=== PATIENT | female | born 1975 | race Caucasian/White ===

== ENCOUNTER → 2018-04-22 | Emergency (ER) | payer SELFPAY ==
[~2018-04-22] MED LIST: ALBUTEROL 2.5 MG/3 ML NEB SOL ONE; BENZONATATE 100 MG CAP PO ONE; IPRATROPIUM BROM 0.5MG/2.5ML ONE; predniSONE 10 MG TAB ONE; predniSONE 20 MG TAB ONE
--- NOTE | 2018-04-22 10:45 | RAD REPORT ---
EXAM DESCRIPTION: Saji Joshua (2 Views)04/22/2018 10:28 am CLINICAL HISTORY: Cough COMPARISON: None FINDINGS: The lungs appear clear of acute infiltrate. The heart is normal size IMPRESSION: No acute abnormalities displayed
== END ==
LOC: ER 07:05
DX: R05 Cough (principal); Z72.0 Tobacco use
CPT/HCPCS: 71046; 87070; 87081; 87804; J7512

== ENCOUNTER 2018-08-11 19:39 | Emergency (ER) | payer SELFPAY ==
[2018-08-11 21:33] LABS: Absolute Lymphocytes (CBC) 2.5 K/uL (0.7-4.9); Absolute Monocytes 0.7 K/uL (0.1-1.3); Absolute Neutrophil 6.6 K/uL (1.8-8.0); Basophils % 0.7 % (0-1.3); Eosinophils % 2.9 % (0-4.4); Hematocrit 39.5 % (36.0-45.0); Lymphocytes % 24.9 % (15.3-44.8); MPV 8.9 fL (7.6-11.3); RBC Red Blood Cell Count 4.72 M/uL (3.86-4.86)
[2018-08-11 21:37] LABS: Protime INR 1.03
[2018-08-11 21:52] LABS: ALT/SGPT 47 U/L (12-78); AST/SGOT 16 U/L (15-37); Albumin 3.8 g/dL (3.4-5.0); Alkaline Phosphatase 69 U/L (45-117); BUN Blood Urea Nitrogen 12 mg/dL (7-18); Bicarbonate 25 mmol/L (21-32); Bilirubin Direct < 0.1 mg/dL (0-0.2); Bilirubin Total 0.3 mg/dL (0.2-1.0); Glucose Level 109 mg/dL (74-106); Lipase 70 U/L (73-393); Magnesium 2.2 mg/dL (1.8-2.4); NT PRO-BNP 40 pg/mL (<125); Potassium 3.7 mmol/L (3.5-5.1); Protein, Total 7.2 g/dL (6.4-8.2); Sodium Level 139 mmol/L (136-145); Troponin (Emerg Dept Use Only) < 0.02 ng/mL (0.0-0.045)
--- NOTE | 2018-08-12 00:14 | EDPHYS ---
Physician Documentation [facility] Name: Elana Bowers Age: 43 yrs Sex: Female : 1975 Arrival Date: 08/11/2018 Time: 19:42 Bed 23 Private MD: ED Physician Rob Zelaya HPI: 08/11 20:19 This 43 yrs old Female presents to ER via Ambulatory with complaints of Pain jmm under rib on left side. 20:19 The patient has shortness of breath at rest. Onset: The symptoms/episode began/occurred jmm gradually, 3 day(s) ago. Duration: The symptoms are continuous, and are steadily getting worse. The patient's shortness of breath is aggravated by nothing, is alleviated by nothing. The patient or guardian reports chest pain that is located primarily in the diaphragm. Onset: gradually, 1 year(s) ago. This is a 43 year old female with no chronic medical conditions that presents to the ED with lower rib pain beginning approx 1 year ago worsening over the past 3 days with shortness of breath. Patient denies abdominal pain. Patient denies fever. Patient states she was previously evaluated for COPD 2 years ago but has not had a flare up since. . 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 - Social history:: Smoking status: Patient/guardian denies using tobacco. - Ebola Screening: : Patient negative for fever greater than or equal to 101.5 degrees Fahrenheit, and additional compatible Ebola Virus Disease symptoms Patient denies exposure to infectious person Patient denies travel to an Ebola-affected area in the 21 days before illness onset No symptoms or risks identified at this time. ROS: 20:19 Constitutional: Negative for fever, chills, and weight loss. jmm 20:19 Abdomen/GI: Negative for abdominal pain, nausea, vomiting, diarrhea, and constipation, MS/Extremity: Negative for injury and deformity, Skin: Negative for injury, rash, and discoloration, Neuro: Negative for headache, weakness, numbness, tingling, and seizure. 20:19 Cardiovascular: Positive for chest pain. 20:19 Respiratory: Positive for shortness of breath. 20:19 All other systems are negative. Exam: 20:19 Head/Face: atraumatic. Eyes: EOMI, no conjunctival erythema appreciated ENT: Moist jmm Mucus Membranes Neck: Trachea midline, Supple Chest/axilla: Normal chest wall appearance and motion. Cardiovascular: Regular rate and rhythm. No edema appreciated 20:19 Constitutional: The patient appears in no acute distress, alert, awake. 20:19 Chest/axilla: Inspection: normal, Palpation: tenderness, that is moderate, of the diaphragm. 20:19 Respiratory: the patient does not display signs of respiratory distress, Respirations: normal, Breath sounds: are clear throughout. 20:19 Abdomen/GI: Inspection: obese Bowel sounds: normal, Palpation: abdomen is soft and non-tender, in all quadrants. 20:19 Back: ROM is normal. 20:19 Musculoskeletal/extremity: ROM: intact in all extremities. 20:19 Skin: Appearance: Color: normal in color. 20:19 Neuro: Orientation: is normal, Mentation: is normal, Memory: is normal. 20:19 Psych: Behavior/mood is pleasant, cooperative. Vital Signs: 19:49 BP 134 / 91; Pulse 88; Resp 19; Temp 97.6; Pulse Ox 98% on R/A; Weight 90.72 kg; Height aj 5 ft. 5 in. (165.10 cm); 21:49 BP 136 / 87; Pulse 76; Resp 16; Pulse Ox 99% on R/A; Pain 4/10; ed1 22:59 BP 115 / 82; Pulse 78; Resp 16; Pulse Ox 98% on R/A; jb4 08/12 00:00 BP 119 / 89; Pulse 75; Resp 16; Pulse Ox 99% on R/A; jb4 08/11 19:49 Body Mass Index 33.28 (90.72 kg, 165.10 cm) aj MDM: 08/11 20:19 Patient medically screened. [facility] 23:56 Data reviewed: vital signs, nurses notes, lab test result(s), radiologic studies, CT [facility] scan. Counseling: I had a detailed discussion with the patient and/or guardian regarding: the historical points, exam findings, and any diagnostic results supporting the discharge/admit diagnosis, lab results, radiology results, the need for outpatient follow up, to return to the emergency department if symptoms worsen or persist or if there are any questions or concerns that arise at home. ED course: I do not suspect ACS. Heart Score = 1. . 08/12 00:10 ED course: I do not suspect ACS. Normal EKG, troponin normal. CTA normal. patient is [facility] advised to follow up with GI for further evaluation. Patient is otherwise given strict return precautions. Patient understood and agrees with the plan of care. . 08/11 20:29 Order name: Basic Metabolic Panel; Complete Time: 21:54 [facility] 08/11 20:29 Order name: CBC with Diff; Complete Time: 21:42 [facility] 08/11 20:29 Order name: LFT's; Complete Time: :54 [facility] 08/11 20:29 Order name: Magnesium; Complete Time: 21:54 [facility] 08/11 20:29 Order name: NT PRO-BNP; Complete Time: 21:54 [facility] 08/11 20:29 Order name: PT-INR; Complete Time: 21:42 [facility] 08/11 20:29 Order name: Troponin (emerg Dept Use Only); Complete Time: 21:54 [facility] 08/11 20:29 Order name: EKG; Complete Time: 20:30 [facility] 08/11 20:29 Order name: Cardiac monitoring; Complete Time: 21:51 [facility] 08/11 20:29 Order name: EKG - Nurse/Tech; Complete Time: 21:51 [facility] 08/11 20:29 Order name: IV Saline Lock; Complete Time: 21:51 [facility] 08/11 20:29 Order name: Lipase; Complete Time: 21:54 [facility] 08/11 20:30 Order name: CT Chest For PE Angio [facility] 08/11 20:29 Order name: Labs collected and sent; Complete Time: 21:51 [facility] 08/11 20:29 Order name: O2 Per Protocol; Complete Time: 21:51 [facility] 08/11 20:29 Order name: O2 Sat Monitoring; Complete Time: 21:51 [facility] Administered Medications: 00:10 Drug: Ketorolac 30 mg Route: IVP; Site: right antecubital; jb4 00:24 Follow up: Response: No adverse reaction; Pain is decreased jb4 Disposition: 07:34 Co-signature as Attending Physician, Rob Zelaya MD I agree with the assessment and satinder plan of care. Disposition: 08/12/18 00:13 Discharged to Home. Impression: Intercostal pain. - Condition is Stable. - Discharge Instructions: Chest Wall Pain, Esophagitis. - Prescriptions for Pepcid 20 mg Oral Tablet - take 1 tablet by ORAL route every 12 hours for 10 days; 20 tablet. - Medication Reconciliation Form, Thank You Letter, Antibiotic Education, Prescription Opioid Use form. - Follow up: Elmo Soliman MD; When: 2 - 3 days; Reason: Recheck today's complaints, Continuance of care, Re-evaluation by your physician. Follow up: Brandon Munguia MD; When: 2 - 3 days; Reason: Recheck today's complaints, Continuance of care, Re-evaluation by your physician. Signatures: Dispatcher [employer] EDKanika Arevalo, RN RN Rob Johnson MD MD cha Mickail, Joel, PA PA jmm Bryson, James RN RN jb4 Corrections: (The following items were deleted from the chart) 00:25 00:13 08/12/2018 00:13 Discharged to Home. Impression: Intercostal pain. Condition is jb4 Stable. Forms are Medication Reconciliation Form, Thank You Letter, Antibiotic Education, Prescription Opioid Use. Follow up: Elmo Soliman; When: 2 - 3 days; Reason: Recheck today's complaints, Continuance of care, Re-evaluation by your physician. Follow up: Brandon Munguia; When: 2 - 3 days; Reason: Recheck today's complaints, Continuance of care, Re-evaluation by your physician. angelica
--- NOTE | 2018-08-12 00:14 | ER ---
Nurse's Notes [facility] Name: Elana Bowers Age: 43 yrs Sex: Female : 1975 Arrival Date: 08/11/2018 Time: 19:42 Bed 23 Private MD: Diagnosis: Intercostal pain Presentation: 08/11 19:48 Presenting complaint: Patient states: Pain to right lower ribs for 1 year that has aj increased in severity in the past 3 days. Transition of care: patient was not received from another setting of care. Onset of symptoms was August 09, 2018. Risk Assessment: Do you want to hurt yourself or someone else? Patient reports no desire to harm self or others. Initial Sepsis Screen: Does the patient meet any 2 criteria? No. Patient's initial sepsis screen is negative. Does the patient have a suspected source of infection? No. Patient's initial sepsis screen is negative. Care prior to arrival: None. 19:48 Method Of Arrival: Ambulatory aj 19:48 Acuity: TAMIKO 3 aj Triage Assessment: 19:49 General: Appears in no apparent distress. comfortable, Behavior is calm, cooperative, aj appropriate for age. Pain: Complains of pain in diaphragm, right breast, right eighth rib, right ninth rib, right tenth rib, right seventh intercostal space and right eighth intercostal space. Neuro: Level of Consciousness is awake, alert, obeys commands, Oriented to person, place, time, situation, Appropriate for age. Respiratory: Airway is patent Respiratory effort is even, unlabored, Respiratory pattern is regular, symmetrical. Derm: Skin is intact, is healthy with good turgor, Skin is pink, warm \T\ dry. normal. 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 - Social history:: Smoking status: Patient/guardian denies using tobacco. - Ebola Screening: : Patient negative for fever greater than or equal to 101.5 degrees Fahrenheit, and additional compatible Ebola Virus Disease symptoms Patient denies exposure to infectious person Patient denies travel to an Ebola-affected area in the days before illness onset No symptoms or risks identified at this time. Screenin:49 Abuse screen: Denies threats or abuse. Denies injuries from another. Nutritional ed1 screening: No deficits noted. Tuberculosis screening: No symptoms or risk factors identified. Fall Risk None identified. Assessment: 21:49 Reassessment: Patient appears in no apparent distress at this time. No changes from ed1 previously documented assessment. Patient and/or family updated on plan of care and expected duration. Pain level reassessed. Patient is alert, oriented x 3, equal unlabored respirations, skin warm/dry/pink. Patient states symptoms have not improved. 22:59 Reassessment: Patient appears in no apparent distress at this time. Patient and/or jb4 family updated on plan of care and expected duration. Pain level reassessed. Patient is alert, oriented x 3, equal unlabored respirations, skin warm/dry/pink. 08/12 00:12 Reassessment: Patient appears in no apparent distress at this time. Patient and/or jb4 family updated on plan of care and expected duration. Pain level reassessed. Patient is alert, oriented x 3, equal unlabored respirations, skin warm/dry/pink. Vital Signs: 08/11 19:49 BP 134 / 91; Pulse 88; Resp 19; Temp 97.6; Pulse Ox 98% on R/A; Weight 90.72 kg; Height aj 5 ft. 5 in. (165.10 cm); 21:49 BP 136 / 87; Pulse 76; Resp 16; Pulse Ox 99% on R/A; Pain 4/10; ed1 22:59 BP 115 / 82; Pulse 78; Resp 16; Pulse Ox 98% on R/A; jb4 08/12 00:00 BP 119 / 89; Pulse 75; Resp 16; Pulse Ox 99% on R/A; jb4 08/11 19:49 Body Mass Index 33.28 (90.72 kg, 165.10 cm) ED Course: 08/11 19:42 Patient arrived in ED. es 19:49 Triage completed. aj 19:49 Arm band placed on left wrist. Patient placed in an exam room. aj 19:51 Griselda Ann LVN is Primary Nurse. ed1 20:06 Obi Nunez PA is PHCP. jm 20:06 Rob Zelaya MD is Attending Physician. [facility] 20:37 Radiology exam delayed due to lab results not completed at this time. (BUN/Creatinine) nj IV insertion attempt and/or patient not having appropriate IV at this time. 21:17 Radiology exam delayed due to lab results not completed at this time. (BUN/Creatinine). nj 21:24 Radiology exam delayed due to lab results not completed at this time. (BUN/Creatinine). 2 21:49 Patient has correct armband on for positive identification. Bed in low position. Call ed1 light in reach. transmitter operator on. Pulse ox on. NIBP on. 21:49 Initial lab(s) drawn, by nv, sent to lab. Inserted saline lock: 22 gauge in right ed1 antecubital area, using aseptic technique. Blood collected. 22:[address] 2 22:26 [address] completed. Patient tolerated procedure well. Patient moved back from CT. 2 22:29 CT Chest For PE Angio In Process Unspecified. EDMS 22:39 Primary Nurse role handed off by Griselda Ann LVN ed1 22:59 Brice Atwood, RN is Primary Nurse. [facility] 04 00:12 Elmo Soliman MD is Referral Physician. [facility] 00:12 Brandon Munguia MD is Referral Physician. [facility] 00:24 No provider procedures requiring assistance completed. IV discontinued, intact, jb4 bleeding controlled. Administered Medications: 00:10 Drug: Ketorolac 30 mg Route: IVP; Site: right antecubital; 4 00:24 Follow up: Response: No adverse reaction; Pain is decreased [facility] Outcome: 00:13 Discharge ordered by . [facility] 00:24 Discharged to home ambulatory. jb4 00:24 Condition: stable 00:24 Discharge instructions given to patient, significant other, Instructed on discharge instructions, follow up and referral plans. medication usage, Demonstrated understanding of instructions, follow-up care, medications, Prescriptions given X 1. 00:25 Patient left the ED. jb Signatures: Dispatcher [employer] Kanika Kim, RN Obi Alfred PA PA Marissa Duran Erika, LVN DIRECTOR SALES [employer] TRADE MARKETING ed1 Brice Atwood, [place] QUINN [facility] Bertin Mcbride Victoria vm2
[2018-08-12] MEDS ORDERED: KETOROLAC 30 MG/ML INJ ONE (00:16)
--- NOTE | 2018-08-12 07:46 | EKG ---
Test Date: 2018-08-11 Test Time: 20:43:49 Commercial Escrow Officer: [id number] MEASUREMENT RESULTS: Intervals: Rate: 67 DC: 182 QRSD: 86 QT: 390 QTc: 412 Poca: P: 70 DC: 182 QRS: 63 T: 76 INTERPRETIVE STATEMENTS: Normal sinus rhythm Cannot rule out Anterior infarct, age undetermined Abnormal ECG No previous ECG available for comparison Electronically Signed On 08-12-18 07:45:47 GENERAL CLAIMS AGENT by Otis Pena
--- NOTE | 2018-08-12 07:59 | RAD REPORT ---
EXAM DESCRIPTION: CT - Chest For Pe Angio - 08/12/2018 6:29 am CLINICAL HISTORY: Chest pain COMPARISON: None. TECHNIQUE: Dynamically enhanced axial 3 mm thick images of the chest were obtained during administra tion of <100> mL Isovue 370 IV contrast. Coronal and oblique reconstruction images were generated and reviewed. Exam utilizes a protocol for optimal evaluation of pulmonary arterial tree. Preliminary re port generated by virtual radiologic and review prior to dictation Maximum intensity projections 3D imaging was utilized All CT scans are performed using dose optimization technique as appropriate and may include automated exposure control or mA/KV adjustment according to patient size. FINDINGS: A pulmonary embolus is not seen. A thoracic aortic aneurysm is not noted. A pleural effusion is not seen. A pericardial effusion is not seen. A lung consolidation is not present. The wall of the distal esophagus appears thickened. Small hiatal hernia IMPRESSION: Negative for a pulmonary embolism. Apparent thickening of the wall of the distal esophagus may indicate inflammation, mass or incomplete distention
== END 2018-08-12 00:25 | disposition home or self-care (01) ==
LOC: ER 19:39
DX: R07.82 Intercostal pain (principal)
CPT/HCPCS: 36415; 71275; 80048; 80076; 83690; 83735; 83880; 84484; 85025; 85610; 93005; 96374; 99285; Q9967

== ENCOUNTER 2019-02-04 12:39 | Emergency (ER) | payer SELFPAY ==
[2019-02-04 13:24] LABS: Absolute Lymphocytes (CBC) 1.5 K/uL (0.7-4.9); Basophils % 0.7 % (0-1.3); Hematocrit 40.5 % (36.0-45.0); Lymphocytes % 19.2 % (15.3-44.8); MPV 8.8 fL (7.6-11.3); Monocytes % 5.3 % (3.3-12.3)
[2019-02-04 13:28] LABS: Urine Blood 2+ (NEG); Urine Glucose NEGATIVE (NEG); Urine Protein NEGATIVE (NEG); Urine Specific Gravity 1.025 (1.005-1.030); Urine pH 5.5 (5.0-7.0)
[2019-02-04] MEDS ORDERED: MAGNE/ALUM HYDROXD 30 ML UCUP ONE (13:34)
[2019-02-04] MEDS ORDERED: MORPHINE 4 MG/ML SYR ONE (13:35)
[2019-02-04] MEDS ORDERED: LIDOCAINE VISCOUS 2% SOLN 15 ML UDC ONE (13:35)
[2019-02-04] MEDS ORDERED: ONDANSETRON 4 MG/2 ML VIAL ONE (13:35)
[2019-02-04 13:41] LABS: ALT/SGPT 78 U/L (12-78); AST/SGOT 32 U/L (15-37); Albumin 3.9 g/dL (3.4-5.0); Alkaline Phosphatase 84 U/L (45-117); BUN Blood Urea Nitrogen 9 mg/dL (7-18); Bicarbonate 27 mmol/L (21-32); Bilirubin Direct < 0.1 mg/dL (0-0.2); Bilirubin Total 0.4 mg/dL (0.2-1.0); Glucose Level 133 mg/dL (74-106); Lipase 48 U/L (73-393); Potassium 3.8 mmol/L (3.5-5.1); Protein, Total 7.3 g/dL (6.4-8.2); Sodium Level 142 mmol/L (136-145)
--- NOTE | 2019-02-04 14:21 | RAD REPORT ---
EXAM DESCRIPTION: CT - Abdomen Pelvis W Contrast - 02/04/2019 2:04 pm CLINICAL HISTORY: Abdominal pain with nausea. COMPARISON: none. TECHNIQUE: Computed axial tomography of the abdomen pelvis was obtained. 100 cc Isovue-300 was admin istered intravenously. Oral contrast was not requested which limits evaluation of bowel. All CT scans are performed using dose optimization technique as appropriate and may include automated exposure control or mA/KV adjustment according to patient size. FINDINGS: Mild hepatomegaly. Fatty liver. Spleen measures 14 centimeters. Cholecystectomy Pancreas, adrenal and kidneys appear unremarkable. There is no evidence of diverticulitis. IMPRESSION: Mild hepatosplenomegaly Fatty liver.
--- NOTE | 2019-02-04 14:30 | ER ---
Nurse's Notes [facility] Name: Elana Bowers Age: 43 yrs Sex: Female : 1975 Arrival Date: 02/04/2019 Time: 12:42 Bed 24 Private MD: Diagnosis: Unspecified abdominal pain;Upper abdominal pain, unspecified Presentation: 02/04 12:43 Presenting complaint: Patient states: "I've been having pain in my right side for a aj1 while, I went to the doctor 2 weeks ago, and she told me if my pain got worse than to go to the emergency room, and now my skin is itching" Reports RUQ abdominal pain. Transition of care: patient was not received from another setting of care. Onset of symptoms was 2018. Risk Assessment: Do you want to hurt yourself or someone else? Patient reports no desire to harm self or others. Initial Sepsis Screen: Does the patient meet any 2 criteria? No. Patient's initial sepsis screen is negative. Does the patient have a suspected source of infection? Yes: Acute abdominal pain. Care prior to arrival: None. 12:43 Method Of Arrival: Ambulatory aj 12:43 Acuity: TAMIKO 3 aj1 Triage Assessment: 12:45 General: Appears uncomfortable, Behavior is cooperative, anxious. Pain: Complains of aj1 pain in right upper quadrant Pain currently is 4 out of 10 on a pain scale. Neuro: Level of Consciousness is awake, alert, obeys commands. Cardiovascular: Patient's skin is warm and dry. Respiratory: Airway is patent Respiratory effort is even, unlabored, Respiratory pattern is regular, symmetrical. GI: Reports upper abdominal pain, nausea. 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 - Social history:: Smoking status: Patient/guardian denies using tobacco. - Ebola Screening: : Patient denies travel to an Ebola-affected area in the 21 days before illness onset. Screenin:02 Abuse screen: Denies threats or abuse. Nutritional screening: No deficits noted. la1 Tuberculosis screening: No symptoms or risk factors identified. Fall Risk None identified. Assessment: 13:01 General: Appears in no apparent distress. Behavior is calm, cooperative. Pain: la1 Complains of pain in abdomen and right upper quadrant. Neuro: Level of Consciousness is awake, alert, obeys commands, Oriented to person, place, time, situation. Cardiovascular: Capillary refill < 3 seconds Patient's skin is warm and dry. Respiratory: Airway is patent Respiratory effort is even, unlabored, Respiratory pattern is regular, symmetrical, Breath sounds are clear bilaterally. GI: Abdomen is round non-distended, obese, Bowel sounds present X 4 quads. Abd is soft X 4 quads Abd is non tender Reports nausea, Patient currently denies diarrhea, vomiting. : No signs and/or symptoms were reported regarding the genitourinary system. EENT: Sclera/Cornea are clear in outer aspect of conjuctiva of right eye, inner aspect of conjuctiva of right eye, outer aspect of conjuctiva of left eye and inner aspect of conjunctiva of left eye. 14:18 Reassessment: Patient appears in no apparent distress at this time. No changes from la1 previously documented assessment. Patient and/or family updated on plan of care and expected duration. Pain level reassessed. Patient is alert, oriented x 3, equal unlabored respirations, skin warm/dry/pink. Vital Signs: 12:45 BP 144 / 98; Pulse 92; Resp 18; Temp 97.6; Pulse Ox 97% on R/A; Weight 97.52 kg (R); aj1 Height 5 ft. 5 in. (165.10 cm) (R); 12:45 Body Mass Index 35.78 (97.52 kg, 165.10 cm) aj1 ED Course: 12:42 Patient arrived in ED. as 12:44 Obi Nunez PA is PHCP. [facility] 12:44 Igor Izaguirre MD is Attending Physician. [facility] 12:45 Triage completed. aj1 12:45 Arm band placed on Patient placed in an exam room. aj1 13:01 Partha Gaxiola, [place] is Primary Nurse. la1 13:02 Call light in reach. Side rails up X 1. la1 13:15 Radiology exam delayed due to lab results not completed at this time. (BUN/Creatinine). ls3 14:04 CT Abd/Pelvis - IV Contrast Only In Process Unspecified. EDMS 14:33 No provider procedures requiring assistance completed. IV discontinued, intact, ss bleeding controlled, No redness/swelling at site. Pressure dressing applied. Administered Medications: 13:26 Drug: GI Cocktail without - (Maalox Suspension 30 ml, Lidocaine Liquid 2 % 15 la1 ml) Route: PO; 14:19 Follow up: Response: No adverse reaction la1 13:27 Drug: morphine 4 mg Route: IVP; Site: right antecubital; la1 14:18 Follow up: Response: No adverse reaction; Pain is decreased la1 13:27 Drug: Zofran 4 mg Route: IVP; Site: right antecubital; la1 14:19 Follow up: Response: No adverse reaction la1 Outcome: 14:28 Discharge ordered by . [facility] 14:33 Discharged to home ambulatory. ss 14:33 Condition: good 14:33 Discharge instructions given to patient, Instructed on discharge instructions, follow up and referral plans. Demonstrated understanding of instructions, follow-up care. 14:33 Patient left the ED. ss Signatures: Dispatcher [employer] EDMS Mickie Degroot, RN RN aj1 Obi Nunez PA PA jmm Martinez, Amelia as Smirch, Shelby, RN RN Partha Gaxiola RN RN la1 Dane Goldstein ls3
--- NOTE | 2019-02-04 14:30 | EDPHYS ---
Physician Documentation [facility] Name: Elana Bowers Age: 43 yrs Sex: Female : 1975 Arrival Date: 02/04/2019 Time: 12:42 Bed 24 Private MD: ED Physician Igor Izaguirre HPI: 02/04 13:12 This 43 yrs old Female presents to ER via Ambulatory with complaints of jmm Abdominal Pain. 13:12 The patient presents with abdominal pain in the right upper quadrant. Onset: The jmm symptoms/episode began/occurred gradually, 2 week(s) ago. The symptoms do not radiate. Associated signs and symptoms: Pertinent negatives: chest pain, diarrhea, fever, vomiting. The symptoms are described as achy, sharp. Modifying factors: The symptoms are alleviated by remaining still, the symptoms are aggravated by movement. This is a 43 year old female with no known chronic medical conditions that presents to the ED with complaints of right upper abdominal pain which has been chronic but worsening over the past 2 weeks. Patient states pain is worse on bending. Patient also complains of itching. . 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 - Social history:: Smoking status: Patient/guardian denies using tobacco. - Ebola Screening: : Patient denies travel to an Ebola-affected area in the 21 days before illness onset. ROS: 13:12 Constitutional: Negative for fever, chills, and weight loss, Cardiovascular: Negative jmm for chest pain, palpitations, and edema, Respiratory: Negative for shortness of breath, cough, wheezing, and pleuritic chest pain. 13:12 Abdomen/GI: Positive for abdominal pain. 13:12 Allergy/Immunology: Positive for pruritus. 13:12 All other systems are negative. Exam: 13:12 Head/Face: atraumatic. Eyes: EOMI, no conjunctival erythema appreciated ENT: Moist jmm Mucus Membranes Neck: Trachea midline, Supple Chest/axilla: Normal chest wall appearance and motion. Cardiovascular: Regular rate and rhythm. No edema appreciated Respiratory: Normal respirations, no respiratory distress appreciated 13:12 Constitutional: The patient appears alert, awake, anxious. 13:12 Abdomen/GI: Inspection: abdomen appears normal, Bowel sounds: normal, Palpation: abdomen is soft and non-tender, in all quadrants. 13:12 Back: ROM is normal. 13:12 Musculoskeletal/extremity: ROM: intact in all extremities. 13:12 Skin: Appearance: Color: normal in color. 13:12 Neuro: Orientation: is normal, Mentation: is normal, Memory: is normal. 13:12 Psych: Behavior/mood is pleasant, cooperative. Vital Signs: 12:45 BP 144 / 98; Pulse 92; Resp 18; Temp 97.6; Pulse Ox 97% on R/A; Weight 97.52 kg (R); aj1 Height 5 ft. 5 in. (165.10 cm) (R); 12:45 Body Mass Index 35.78 (97.52 kg, 165.10 cm) aj1 MDM: 13:00 Patient medically screened. [facility] 14:25 Data reviewed: vital signs, nurses notes. Counseling: I had a detailed discussion with angelica the patient and/or guardian regarding: the historical points, exam findings, and any diagnostic results supporting the discharge/admit diagnosis, lab results, radiology results, the need for outpatient follow up, to return to the emergency department if symptoms worsen or persist or if there are any questions or concerns that arise at home. ED course: CT negative for an acute process. Patient advised to follow up with GI for further evaluation. Patient is otherwise given strict return precautions. Patient understood and agrees with the plan of care. . 02/04 12:58 Order name: Urine Dipstick--Ancillary (enter results); Complete Time: 13:30 02/04 12:58 Order name: Urine --Ancillary (enter results); Complete Time: 13:30 02/04 13:08 Order name: Basic Metabolic Panel [facility] 02/04 13:08 Order name: CBC with Diff; Complete Time: 13:30 [facility] 02/04 13:08 Order name: Creatinine for Radiology; Complete Time: 13:46 [facility] 02/04 13:08 Order name: Hepatic Function; Complete Time: 13:46 [facility] 02/04 13:08 Order name: Lipase; Complete Time: 13:46 [facility] 02/04 13:08 Order name: IV Saline Lock; Complete Time: 13:15 [facility] 02/04 13:08 Order name: Labs collected and sent; Complete Time: 13:15 [facility] 02/04 13:08 Order name: CT Abd/Pelvis - IV Contrast Only; Complete Time: 14:23 [facility] 02/04 13:08 Order name: Basic Metabolic Panel; Complete Time: 13:46 EDMS Administered Medications: 13:26 Drug: GI Cocktail without - (Maalox Suspension 30 ml, Lidocaine Liquid 2 % 15 la1 ml) Route: PO; 14:19 Follow up: Response: No adverse reaction la1 13:27 Drug: morphine 4 mg Route: IVP; Site: right antecubital; la1 14:18 Follow up: Response: No adverse reaction; Pain is decreased la1 13:27 Drug: Zofran 4 mg Route: IVP; Site: right antecubital; la1 14:19 Follow up: Response: No adverse reaction la1 Disposition: 16:53 Co-signature as Attending Physician, Igor Izaguirre MD. rn Disposition: 02/04/19 14:28 Discharged to Home. Impression: Unspecified abdominal pain, Upper abdominal pain, unspecified. - Condition is Stable. - Discharge Instructions: Abdominal Pain, Adult, Nonalcoholic Fatty Liver Disease Diet. - Medication Reconciliation Form, Thank You Letter, Antibiotic Education, Prescription Opioid Use form. - Follow up: Private Physician; When: [facility], [place] [address] [address] [place] [address]. Signatures: Dispatcher [employer] EDMickie Hull RN RN aj1 Obi Nunez PA PA Igor Thao MD MD rn Smirch, Shelby, RN RN ss Attema, Lee, RN RN la1 Corrections: (The following items were deleted from the chart) 14:33 14:28 02/04/2019 14:28 Discharged to Home. Impression: Unspecified abdominal pain; ss Upper abdominal pain, unspecified. Condition is Stable. Forms are Medication Reconciliation Form, Thank You Letter, Antibiotic Education, Prescription Opioid Use. Follow up: Private Physician; When: [facility], [place] [address] [address] [place] [address]. jmm
== END 2019-02-04 14:33 | disposition home or self-care (01) ==
LOC: ER 12:39
DX: R10.11 Right upper quadrant pain (principal); R16.2 Hepatomegaly with splenomegaly, not elsewhere classified; K76.0 Fatty (change of) liver, not elsewhere classified
CPT/HCPCS: 36415; 74177; 80048; 80076; 81003; 81025; 83690; 85025; 96374; 96375; 99283; J2405; Q9967

== ENCOUNTER 2022-03-15 13:02 | Emergency (ER) | payer OTHER, SELFPAY ==
--- OUTSIDE RECORDS SUMMARY | 2022-03-15 13:06 | XMS REPORT | Continuity of Care Document ---
:1975 Author Organization [facility] t Address [address] [place] [address] Care Team Providers Name Role Phone Pcp, Patient Does Not Have A Primary Care Physician +[id number] DHRUV Attending Clinician Unavailable Brady Aguero Attending Clinician [phone] Monica BEATTY Attending Clinician Unavailable Monica Huang Attending Clinician JOSE ROLAND Attending Clinician Unavailable JOLEEN WOLF Attending Clinician Unavailable LUCI RINCON Attending Clinician Unavailable DHRUV Admitting Clinician Unavailable EMERGENCY ROOM, EMERGENCY Admitting Clinician Unavailable Payers Payer Name Policy Type Policy Number Effective Date Expiration Date S ource [employer] [place] [id number] 2020 00:00:00 WOMEN Problems Condition Condition Condition Status Onset Resolution Last Treating Co mments Source Name Details Category Date Date Treatment Clinician Date Stress Stress Disease Active 2020-0 Univers incontinen incontinen 2-13 it y of ce ce 00:00: [address] Adult BMI Adult BMI Disease Active 2020-0 Uni vers 33.0-33.9 33.0-33.9 2-13 ity of kg/sq m kg/sq m 00:00: [address] S/P S/P Disease Active 2020-0 Univers hysterecto hysterecto 2-13 it y of my my 00:00: [address] Allergies, Adverse Reactions, Alerts Allergy Allergy Status Severity Reaction(s) Onset Inactive Treating Comm ents Source Name Type Date Date Clinician PREDNISO DRUG Active Other-Cmnt 2016-08 Univ ers NE INGREDI 2- ity of 00:00: [place] 00 Medical Branch Predniso Propensi Active Other - See 2016-08 Agitatio n Univers ne ty to comments 09-21 ity of adverse 00:00: [place] reaction 00 Medical s Branch Social History Social Habit Start Date Stop Date Quantity Comments Source Exposure to 2021-11-29 2021-12-09 Not sure [facility] SARS-CoV-2 00:00:00 19:24:00 [facility] (event) [place] Alcohol intake 2020-09-19 2020-09-19 Ex-drinker [facility] 00:00:00 00:00:00 (finding) [facility] Tobacco use and 2019-09-21 2019-09-21 Never used Universit y of exposure 00:00:00 00:00:00 [facility] History of 2017-09-21 Cigarette Smoker Universi ty of tobacco use 00:00:00 [facility] Sex Ass[birth year] At [birth year] Universit y of 00:00:00 00:00:00 [facility] Smoking Status Start Date Stop Date Source Former smoker 2019-09-21 00:00:00 2019-09-21 00:00:00 Universi ty of [facility] Medications Ordered Filled Start Stop Current Ordering Indication Dosage Frequency Signature Comments Components Source Medication Medication Date Date Medication? Clinician (SIG) Name Name methylpredn 2021- No 125mg 125 mg, U nivers isolone sod 12-10- Intramuscu i ty of succ 01:00: 00:11 lar, ONCE, [place] (SOLU-MEDRO 00 :00 1 dose, On Me dical L) Wed12/09/21 Branch injection at 2000, 125 mg JACKIE methocarbam 2021- No 500mg 500 mg, U nivers oL 12-10- Oral, ity of (ROBAXIN) 01:00: 00:10 [place]CE, [place] tablet 500 [place] :00 dose, On Medic al mg Wed12/09/21 Branch at 1999, Routine methylPREDN Yes [id number] Take by Univers ISolone 12-09 mouth ity of (MEDROL, 00:00: SEE-INSTRU Aftab as DANIELLE,) 4 mg 00 CTIONS. Medica l tablets follow Branch package directions methocarbam Yes [id number] 500mg Take 1 Univers oL 500 mg 5-03 tablet by ity o f tablet 00:00: mouth 4 (four) Medical times Branch daily. ciprofloxac Yes [id number] 500mg Take 1 Univers in HCl 500 2-11 tablet by ity of mg tablet 00:00: mouth 2 (two) Medical times Branch daily. dicyclomine Yes [id number] 20mg Take 1 Univers 20 mg 2-11 tablet by ity of tablet 00:00: mouth 4 (four) Medical times Branch daily as needed for Abdominal pain. proMETHazin Yes [id number] 25mg Take 1 Univers e 25 mg 2-11 tablet by ity of tablet 00:00: mouth [place] 00 every 6 Medical (six) Branch hours as needed for Nausea and Vomiting (N/V). escitalopra Yes Take by Uni vers m oxalate 2-13 mouth. ity of (LEXAPRO 08:29: [place] ORAL) 02 [facility] Immunizations Ordered Filled Immunization Date Status Comments [facility] e Immunization Name Name TDAP (ADACEL) 2012-04-09 Completed [facility] VACCINE 00:00:00 [facility] Vital Signs Vital Name Observation Time Observation Value Comments Source Systolic blood 2021-12-09 22:50:00 139 [facility]Hg[facility] Diastolic blood 2021-12-09 22:50:00 89 mm[Hg] [facility] Heart rate 2021-12-09 22:50:00 84 /min [facility] Body temperature 2021-12-09 22:50:[address] [facility] Respiratory rate 2021-12-09 22:50:00 22 /min [facility] Body weight 2021-12-09 22:50:00 90.719 kg [facility] BMI 2021-12-09 22:50:00 33.28 kg/m2 [facility] Oxygen saturation in 2021-12-09 22:50:00 99 /min University of Arterial blood by [facility] Pulse oximetry Branch Procedures Procedure Date / Time Performed Performing Clinician [facility] e NOTICE OF PRIVACY 2021-12-09 22:38:47 Doctor Unassigned, [facility] Name Medical Branch CONSENT/REFUSAL FOR 2021-12-09 22:38:10 Doctor Unassigned, No [facility] DIAGNOSIS AND Name Medical Branch TREATMENT Encounters Start End Encounter Admission Attending Care Care Encounter Source Date/Time Date/Time Type Type Clinicians Facility Department ID 2021-06-07 Emergency [facility] [id number] [facility]-11 2022-03-11 Outpatient SISSON_C [facility] [id number] [place] 00:00:00 00:00:00 [id number] [facility] 2022-03-11 2022-03-11 Outpatient More, [facility] [id number] 00:00:00 00:00:00 Brady [id number] 2022-03-03 2022-03-03 Outpatient SISSON_C [facility] [id number] [place] 12:52:00 12:52:00 [id number] [facility] 2022-03-03 2022-03-03 Outpatient More, [facility] [id number] 00:00:00 00:00:00 Brady [id number] 2022-02-24 2022-02-24 Outpatient SISSON_C [facility] [id number] [place] 10:53:00 10:53:00 [id number] [facility] 2021-12-09 2021-12-09 Emergency X Monica BEATTY [facility] ERT [id number] Univers 17:51:00 19:27:00 ity [facility] 2021-12-09 2021-12-09 Emergency Monica Beatty [facility] [id number] Univers 17:51:00 19:27:00 Anitha BLANCO [id number] i [facility] [id number] [facility] [id number] [facility] 084 Branch 2020-02-12 2020-02-12 Outpatient Jacque ROLAND [facility] [id number] Univers 00:00:00 00:00:00 JOSE ity [facility] 2020-02-12 2020-02-12 Outpatient Jacque ROLAND [facility] [id number] Univers 00:00:00 00:00:00 JOSE misael [facility] 2019-11-14 2019-11-14 Outpatient R [facility] [id number] Univers 10:40:00 10:40:00 [id number] [facility] 2019-11-14 2019-11-14 Outpatient R LUCIANO [facility] [id number] Univers 10:40:00 10:40:00 JOLEEN misael [facility] 2019-11-08 2019-11-08 Outpatient Jacque ROLAND [facility] [id number] Univers 12:30:00 12:30:00 JOSE misael [facility] 2019-11-08 2019-11-08 Outpatient Jacque ROLAND [facility] [id number] Univers 11:45:00 11:45:00 JOSE [facility] 2019-11-08 2019-11-08 [facility] [id number] Univers 11:00:00 11:00:00 JOSE misael [facility] 2019-11-08 2019-11-08 Outpatient Jacque ROLAND [facility] [id number] Univers 00:00:00 00:00:00 JOSE hare [facility] 2019-11-02 2019-11-02 Outpatient R [facility] [id number] Univers 07:45:00 07:45:00 [id number] ity [facility] 2019-11-02 2019-11-02 Outpatient R [facility] [id number] Univers 07:45:00 07:45:00 ity [facility] 2019-10-10 2019-10-10 [facility] [id number] Univers 00:00:00 00:00:00 JOSE misael [facility] 2019-10-10 2019-10-10 [facility] [id number] Univers 00:00:00 00:00:00 JOSE hare [facility] 2019-09-21 2019-09-21 Outpatient R LUAN, [facility] [id number] [facility] 08:00:00 09:06:15 JOSE hare [facility] 2007-01-13 2007-01-13 Emergency X SERGEY [facility] ERT [id number] [facility] 11:21:00 15:42:00 LUCI 0 [facility] Results Test Description Test Time Test Comments Results Result Comments Source LIPID PANEL 2021-12-22 01:13:47 Test Item Value Reference Range Interpretation Comme nts CHOLESTEROL (test code = 2210) 132 MG/DL <200 TRIGLYCERIDES (test code = 2232) 100 MG/DL <150 HDL CHOLESTEROL (test code = 51 MG/DL >39 2219) CALC LDL CHOL (test code = 2237) 62 MG/DL <100 NOTE: CALCULATED LDL IS BASED ON MARK-RAYMOND METHOD WHICHINCLUDES A DJUSTABLE TRIGLYCERIDE:VL DL CHOLESTEROL RATIO.THIS FACT OR VARIES BY MEASURED TRIGLY CERIDE AND NON-HDLCHOLESTE ROL CONCENTRATIONS WITH INCREASED CALCULATED LDL SEENIN HIGHER T RIGLYCERIDE OR LOWER NON-HDL S PECIMENS. FOR MOREINFORMATION , SEE CLIENT ANNOUNCEMENT AT [email or web address] RATIO LDL/HDL (test code = 1.22 RATIO <3.22 2237) COMPREHENSIVE METABOLIC [id number] 01:13:47 Test Item Value Reference Range Interpretation Comments GLUCOSE (test code = 115 MG/DL 70-99 H 2216) BUN (test code = 11 MG/DL -20 2207) CREATININE (test 0.60 MG/DL 0.60-1.30 code = 2214) eGFR (2020 CKD-EPI) 113 >60 (test code = 56750) ML/MIN/1.73 CALC BUN/CREAT (test 18 RATIO 6-28 code = 2235) SODIUM (test code = 141 MEQ/L 441-018 0676) POTASSIUM (test code 4.4 MEQ/L 3.5-5.4 = 2228) CHLORIDE (test code 104 MEQ/L 95-107 = 2215) CARBON DIOXIDE (test 21 MEQ/L 19-31 code = 2206) CALCIUM (test code = 9.1 MG/DL 8.5-10.5 2208) PROTEIN, TOTAL (test 6.5 G/DL 6.1-8.3 code = 2229) ALBUMIN (test code = 4.3 G/DL 3.5-5.2 2200) CALC GLOBULIN (test 2.2 G/DL 1.9-3.7 code = 2240) CALC A/G RATIO (test 2.0 RATIO 1.0-2.6 code = 2234) BILIRUBIN, TOTAL 0.4 MG/DL See_Comment [Automated message] (test code = 2206) The [employer] Share[employer] which generated this result transmitted ref erence range: <=1.2. T he reference range was not used to int erpret this result as normal/abnormal . ALKALINE PHOSPHATASE 68 U/L 40-115 (test code = 2203) AST (test code = 16 U/L 9-40 2217) ALT (test code = 31 U/L 5-40 UNLESS OTH ERWISE 2218) INDICATED, ALL TESTING PERFORM ED ATCLINICAL PATH [facility] [address] [place] [address] ANJEL CUNNINGHAM DIRECTOR: ROB WORTHINGTON M.D. CLIA NUMBER [id number] CAP ACCREDITATION N O. [id number] HEMOGLOBIN [id number] 04:43:57 Test Item Value Reference Range Interpretation Comments HEMOGLOBIN A1c (test code = 22024) 5.7 % 4.2-5.6 H HEMOGLOBIN [id number] 04:46:59 Test Item Value Reference Range Interpretation Comments HEMOGLOBIN A1c (test 5.3 % 4.2-5.6 UNLESS OTHERWISE code = 15604) INDICATED, ALL TESTING PERFORMED ATCLI NICAL PATHOLOGY LABOR [facility] [address] [place] [address] ANJEL CUNNINGHAM DIRECTOR: ROB WORTHINGTON M.D. CLIA NUMBER [id number] CAP ACCREDITATION N O. [id number]
[2022-03-15] MEDS ORDERED: HYDROCODONE/APAP 5/325 MG TAB ONE (13:56)
--- NOTE | 2022-03-15 14:30 | RAD REPORT ---
EXAM DESCRIPTION: RAD - Knee Left 3 View - 03/15/2022 2:03 pm CLINICAL HISTORY: Left knee pain FINDINGS: No fracture or dislocation is seen.
--- NOTE | 2022-03-15 14:36 | ER ---
Nurse's Notes [facility] Name: Elana Bowers Age: 46 yrs Sex: Female : 1975 Arrival Date: 03/15/2022 Time: 13:04 Bed 18 Private MD: Diagnosis: Pain in right knee Presentation: 03/15 13:19 Chief complaint: Patient states: was on back of truck last night, hit a bump and came iw down hard, hit knee cap and twisted her right knee. Coronavirus screen: At this time, the client does not indicate any symptoms associated with coronavirus-19. Ebola Screen: Patient negative for fever greater than or equal to 101.5 degrees Fahrenheit, and additional compatible Ebola Virus Disease symptoms Patient denies exposure to infectious person. Patient denies travel to an Ebola-affected area in the 21 days before illness onset. No symptoms or risks identified at this time. Initial Sepsis Screen: Does the patient meet any 2 criteria? No. Patient's initial sepsis screen is negative. Does the patient have a suspected source of infection? No. Patient's initial sepsis screen is negative. Risk Assessment: Do you want to hurt yourself or someone else? Patient reports no desire to harm self or others. Onset of symptoms was March 14, 2022. 13:19 Method Of Arrival: Ambulatory iw 13:19 Acuity: TAMIKO 4 iw Triage Assessment: 13:31 Injury Description: Bruise. ll1 FINANCE MGR: 15:48 LMP N/A - control method ll1 Historical: - Allergies: 13:20 Prednisone; iw - Home Meds: 13:20 Adipex-P oral [Active]; Lexapro Oral [Active]; Metformin Oral [Active]; iw - PSHx: 13:20 Cholecystectomy; Appendectomy; hysterectomy; tubal; nose; iw - Immunization history:: Adult Immunizations up to date. - Social history:: Smoking status: Patient denies any tobacco usage or history of. Screenin:30 Abuse screen: Denies threats or abuse. Nutritional screening: No deficits noted. ll1 Tuberculosis screening: No symptoms or risk factors identified. Fall Risk Ambulatory Aid- Crutches/Cane/Walker (15 pts). Gait- Impaired (20 pts.). Total Tay Fall Scale indicates Low Risk Score (25-44 pts). Fall prevention measures have been instituted. Side Rails Up X 2 Placed close to Nursing Station Frequent Obs/Assesments occuring Family Present and informed to notify staff if they need to leave bedside As available Patient and Family Educated on Fall Prevention Program and strategies. Assessment: 13:25 General: Appears uncomfortable, Behavior is calm, cooperative, appropriate for age. ll1 Pain: Complains of pain in R knee. Musculoskeletal: Circulation, motion, and sensation intact. Capillary refill < 3 seconds, Reports pain in R knee. 13:35 Reassessment: Given pillow for RLE and warm blanket. Ralph Rea NP informed that she ll1 wants pain medication. 14:30 Reassessment: No changes from previously documented assessment. Patient and/or family ll1 updated on plan of care and expected duration. Pain level reassessed. Patient is alert, oriented x 3, equal unlabored respirations, skin warm/dry/pink. 14:54 Reassessment: No changes from previously documented assessment. Patient and/or family ll1 updated on plan of care and expected duration. Pain level reassessed. Vital Signs: 13:19 BP 127 / 82; Pulse 85; Resp 16; Pulse Ox 100% on R/A; iw 14:50 Temp 98.0; Pain 4/10; ll1 ED Course: 13:04 Patient arrived in ED. am2 13:08 Orlnado Rea is PHCP. jl9 13:08 Rob Zelaya MD is Attending Physician. jl9 13:20 Triage completed. iw 13:21 Arm band placed on. iw 13:25 Florentino Torres, RN is Primary Nurse. ll1 13:31 Patient has correct armband on for positive identification. Bed in low position. Call ll1 light in reach. Side rails up X 1. Cardiac monitoring not applicable on this patient. 14:04 XRAY Knee LEFT 3 view In Process Unspecified. EDMS 14:54 No provider procedures requiring assistance completed. ll1 15:40 Patient did not have IV access during this emergency room visit. Kendrick wrap to right knee ll1 tolerated well. PMS still intact. Administered Medications: 13:51 Drug: HYDROcodone-acetaminophen 5 mg-325 mg 1 tabs {Note: rass 0, pain 7/10.} Route: PO;ll1 14:50 Follow up: Response: No adverse reaction; Pain is decreased; RASS: Alert and Calm (0) ll1 Medication: 13:31 VIS not applicable for this client. ll1 Outcome: 14:35 Discharge ordered by MD. talbert 14:54 Patient left the ED. ll1 14:54 Discharged to home ambulatory. ll1 14:54 Condition: stable 14:54 Discharge instructions given to patient, Instructed on discharge instructions, follow up and referral plans. no drinking with medication, no driving heavy equipment, medication usage, Demonstrated understanding of instructions, follow-up care, medications, Prescriptions given X 1. Signatures: Dispatcher [employer] EDMS Aure Leonardo RN RN iw Kanika Phillip am2 Florentino Torres RN RN ll1 Linares, John jl9 Corrections: (The following items were deleted from the chart) 13:21 13:19 Resp 16bpm; Pulse Ox 100% RA; iw 13:21 13:20 PMHx: None; iw 13:30 13:25 Pain: Complains of pain in L knee ll1 ll1 13:30 13:25 Musculoskeletal: Circulation, motion, and sensation intact. Capillary refill < 3 ll1 seconds, Reports pain in L knee ll1 13:37 13:35 Reassessment: Given pillow for RLE and warm blanket. Ralph Álvaro informed that she ll1 wants pain medication. ll1
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
[2022-03-15 15:00] VITALS: BP 127/82; O2SAT 100
== END 2022-03-15 14:54 | disposition home or self-care (01) ==
LOC: ER 13:02
DX: M25.562 Pain in left knee (principal)
CPT/HCPCS: 99284